=== PATIENT | female | born 1960 | race Caucasian/White ===

== ENCOUNTER 2018-07-29 13:02 | Emergency (ER) | payer BC ==
--- NOTE | 2018-07-29 13:32 | EDM.PDOC ---
ED HPI GENERAL MEDICAL PROBLEM - General Chief Complaint: General Stated Complaint: NECK PAIN Time Seen by Provider: 07/29/18 13:05 Source of Information: Reports: Patient History Limitations: Reports: No Limitations - History of Present Illness INITIAL COMMENTS - FREE TEXT/NARRATIVE: Pt is a 57/F, present to emergency room with neck injury happened prior to arrival. Pt claims that she was trying to get a 6 foot metal ladder from overhead shade hanger. The ladder slipped back and hit he nape of her neck. had severe pain. . Has been icing for past 30 minutes now, the pain has resolved. No weakness in the extremities. No tingling or numbness. She has noticed swelling over the nape of the neck and hence here to have it checked out. Presently rates her pain at 2-3/10.Pt claims she had enough cushioning of the neck with jacket and neck covered with woolen neck cover when the ladder hit the neck. No other injuries or complaints. Onset: Today Onset Date: 07/29/18 Onset Time: 12:30 Location: Reports: Neck Quality: Reports: Ache Severity: Mild Context: Reports: Lifting Associated Symptoms: Denies: Confusion, Chest Pain, Cough, Diaphoresis, Fever/ Chills, Headaches, Nausea/Vomiting, Rash, Seizure, Shortness of Breath, Syncope , Weakness - Related Data Allergies Allergy/AdvReac Type Severity Reaction Status Date / Time No Known Allergies Allergy Verified 07/29/18 13:21 Home Meds: Home Meds NK [No Known Home Meds] 07/29/18 [History] ED ROS GENERAL - Review of Systems Review Of Systems: See Below Constitutional: Denies: Fever, Chills HEENT: Denies: Sinus Problem, Throat Pain, Throat Swelling Respiratory: Denies: Shortness of Breath, Wheezing, Cough, Sputum Cardiovascular: Denies: Chest Pain, Lightheadedness GI/Abdominal: Denies: Abdominal Pain, Nausea, Vomiting Musculoskeletal: Reports: Neck Pain. Denies: Arm Pain, Back Pain, Joint Pain, Joint Swelling Skin: Denies: Bruising, Pruritis, Rash Neurological: Denies: Confusion, Dizziness, Headache, Numbness, Tingling, Weakness ED EXAM, GENERAL - Physical Exam Exam: See Below Exam Limited By: No Limitations General Appearance: Alert, WD/WN, No Apparent Distress Eye Exam: Bilateral Eye: EOMI, PERRL Ears: Normal External Exam, Normal Canal, Hearing Grossly Normal, Normal TMs Ear Exam: Bilateral Ear: Auricle Normal, Canal Normal, TM normal Nose: Normal Inspection, Normal Mucosa, No Blood Throat/Mouth: Normal Inspection, Normal Lips, Normal Teeth, Normal Gums, Normal Oropharynx, Normal Voice, No Airway Compromise Head: Atraumatic, Normocephalic Neck: Supple, Full Range of Motion, Other (there is minimal swelling over the lower nape of the neck, around C5, C6 spinous processs. minimal tenderness to palpation and percussion.). No: Tender Lateral, Tender Midline Respiratory/Chest: No Respiratory Distress, Lungs Clear, Normal Breath Sounds, No Accessory Muscle Use, Chest Non-Tender Cardiovascular: Normal Peripheral Pulses, Regular Rate, Rhythm, No Edema, No Gallop, No JVD, No Murmur, No Rub Extremities: Normal Inspection, Normal Range of Motion, Non-Tender, Normal Capillary Refill, No Pedal Edema Neurological: Alert, Oriented, CN II-XII Intact, Normal Cognition, Normal Gait, Normal Reflexes, No Motor/Sensory Deficits Course - Vital Signs Text/Narrative:: Clinical exam of the neck is normal. She does have painless good ROM of the neck. On inspection there is soft tissue swelling over the nape of the neck. I did get C-spine x-ray done to make sure she does not have any spinous process injury. X-ray appear normal. Pt reassured that she has soft tissue injury of the neck. Advised motrin 600mg 3 times daily with food. Intermittent cold compresses to the neck. Pain will get slightly worse before it gets better. avoid neck massage. Return to emergency room, if there is weakness, tingling or numbness int he upper extremities. Otherwise the pain should gradually improve over next 4-5 days. - Orders/Labs/Meds Orders: Active Orders 24 hr Category Date Time Status Cervical Spine 2V or 3V [CR] Stat Exams 07/29/18 13:26 Taken Departure - Departure Time of Disposition: 14:00 Disposition: Home, Self-Care 01 Condition: Fair Clinical Impression: Soft tissue injury of neck - Discharge Information *PRESCRIPTION DRUG MONITORING PROGRAM REVIEWED*: Not Applicable *COPY OF PRESCRIPTION DRUG MONITORING REPORT IN PATIENT ELIANA: Not Applicable Instructions: Neck Contusion Referrals: PCP,None [Primary Care Provider] - Forms: ED Department Discharge - Problem List & Annotations (1) Soft tissue injury of neck SNOMED Code(s): 16156436, 024515508 Code(s): S19.9XXA - UNSPECIFIED INJURY OF NECK, INITIAL ENCOUNTER Status: Acute Current Visit: Yes - Problem List Review Problem List Initiated/Reviewed/Updated: Yes - My Orders Last 24 Hours: My Active Orders 07/29/18 13:26 Cervical Spine 2V or 3V [CR] Stat - Assessment/Plan Last 24 Hours: My Active Orders 07/29/18 13:26 Cervical Spine 2V or 3V [CR] Stat Assessment:: Soft tissue injury of the neck Plan: Clinical exam of the neck is normal. She does have painless good ROM of the neck. On inspection there is soft tissue swelling over the nape of the neck. I did get C-spine x-ray done to make sure she does not have any spinous process injury. X-ray appear normal. Pt reassured that she has soft tissue injury of the neck. Advised motrin 600mg 3 times daily with food. Intermittent cold compresses to the neck. Pain will get slightly worse before it gets better. avoid neck massage. Return to emergency room, if there is weakness, tingling or numbness int he upper extremities. Otherwise the pain should gradually improve over next 4-5 days.
--- NOTE | 2018-07-30 11:26 | CR ---
DATE OF SERVICE: 07/29/18 CLINICAL DATA: Ladder hit against the nape of the neck CERVICAL SPINE: There is diffuse osteopenia. There is minimal reversal of the normal cervical lordosis. This is most likely positional or due to mucosal spasm. No acute fracture or dislocation. No focal lytic or blastic bone lesions. There are disc marginal spurs at multiple levels with disc space narrowing at the C5-6 and C6-7 levels. There is 2 mm anterolisthesis of C4 on C5. No other significant findings. No lytic or blastic bone lesions. [id number] [facility]
== END 2018-07-29 14:00 | disposition home or self-care (01) ==
LOC: LB.ED 13:02
DX: S19.9XXA Unspecified injury of neck, initial encounter (principal); W22.8XXA Striking against or struck by other objects, initial encounter
CPT/HCPCS: 72040; 99283-25

== ENCOUNTER 2021-07-23 10:36 | Day surgery (SDC) | payer BC ==
[~2021-07-23 10:36] MED LIST: Metoclopramide 10 MG/2 ML SDV IV PRN; Sodium Chloride 0.9% 1,000 ML IV SCH
[2021-07-23] MEDS ORDERED: Propofol 1,000 MG/100 ML SDV ONE (12:50)
== END 2021-07-23 14:50 | disposition home or self-care (01) ==
LOC: LB.SDS 10:36
PROVIDERS: ATTEND Surgery
DX: Z12.11 Encounter for screening for malignant neoplasm of colon (principal)
CPT/HCPCS: J2704; J7030